=== PATIENT | female | born 1950 | race Caucasian/White ===

== ENCOUNTER 2023-03-20 15:14 | Inpatient (IN) ==
[2023-03-20] MEDS ORDERED: fentaNYL citrate PF 100 MCG/2 ML VIAL IV STA (17:29)
[2023-03-20] MEDS ORDERED: ONDANSETRON INJ 2 MG/ML 2 ML VIAL IV STA (17:29)
[2023-03-20 18:18] LABS: Basophils # (auto) 0.02 K/uL (0.00-0.20); Basophils % (auto) 0.2 %; Eosinophils # (auto) 0.09 K/uL (0.00-0.50); Hematocrit (blood only) 41.2 % (37.0-47.0); Immature Granulocytes # (auto) 0.04 K/uL (0.01-0.20); Immature Granulocytes % (auto) 0.4 %; Lymphocytes # (auto) 1.09 K/uL (1.20-3.40); Lymphocytes % (auto) 11.5 %; Mean Corpuscular Hemoglobin 32.8 pg (25.0-34.0); Mean Corpuscular Volume 96.5 fL (80.0-100.0); Mean Platelet Volume 11.4 fL (9.4-12.4); Monocytes # (auto) 0.72 K/uL (0.11-0.59); Monocytes % (auto) 7.6 %; Neutrophils # (auto) 7.48 K/uL (1.40-6.50); Neutrophils % (auto) 79.3 %; Platelet Count 210 K/uL (130-400); RDW Coefficient of Variation 12.2 % (11.5-14.5); RDW Standard Deviation 43.4 fL (36.4-46.3); Red Blood Count 4.27 M/uL (4.20-5.40); White Blood Count 9.44 K/ul (4.8-10.8)
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
[2023-03-20 18:32] LABS: Albumin Globulin Ratio 1.8 (0.9-2); Albumin Level 4.6 gm/dl (3.4-5.0); Bilirubin,Total 0.5 mg/dl (0.2-1.0); Creatinine Clr Calc Pharmacy 77.6 ml/min; Est GFR (African American) 97.9 ml/min; Est GFR (Non-African American) 84.5 ml/min; Globulin 2.6 gm/dl (2.5-4.0); Potassium 3.8 mmol/L (3.5-5.1); Total Protein 7.2 gm/dl (6.0-8.3)
[2023-03-20] MEDS ORDERED: OPTIRAY 320 100ml IV ONE (18:57)
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
--- NOTE | 2023-03-20 20:04 | CT Scan Report ---
Exam(s): CT HEAD Without Contrast EXAM: CT Head Without Intravenous Contrast CLINICAL HISTORY: Reason for exam: Trauma. TECHNIQUE: Axial computed tomography images of the head/brain without intravenous contrast. CTDI is 21.98 mGy and DLP is 475.66 mGy-cm. Automated exposure control was utilized for the study. A dose lowering technique was utilized adhering to the principles of ALARA. COMPARISON: No relevant prior studies available. FINDINGS: Brain: Minimal white matter disease, likely related to microangiopathy. No hemorrhage. Ventricles: Unremarkable. No ventriculomegaly. Bones/joints: Unremarkable. No acute fracture. Soft tissues: Unremarkable. Sinuses: Unremarkable as visualized. No acute sinusitis. Mastoid air cells: Unremarkable as visualized. No mastoid effusion. IMPRESSION: No acute findings in the head/brain. Electronically signed by: Benedict Rivera M.D. 03/20/23 20:03 PM
--- NOTE | 2023-03-20 20:07 | CT Scan Report ---
Exam(s): CT C SPINE EXAM: CT Cervical Spine Without Intravenous Contrast CLINICAL HISTORY: Reason for exam: Trauma. TECHNIQUE: Axial computed tomography images of the cervical spine without intravenous contrast. CTDI is 26.55 mGy and DLP is 1441.31 mGy-cm. Automated exposure control was utilized for the study. A dose lowering technique was utilized adhering to the principles of ALARA. COMPARISON: No relevant prior studies available. FINDINGS: Vertebrae: Unremarkable. No acute fracture. Discs/spinal canal/neural foramina: Moderate degenerative disc disease at the C6-7 level. No significant bony spinal canal stenosis at any cervical level. Soft tissues: Unremarkable. IMPRESSION: No acute findings in the cervical spine. Electronically signed by: Benedict Rivera M.D. 03/20/23 20:06 PM
[2023-03-20] MEDS ORDERED: HYDROmorphone INJ 0.5 MG/0.5 ML SYR IV STA ×3 (20:20→23:26)
--- NOTE | 2023-03-20 20:22 | CT Scan Report ---
Exam(s): CT CHEST With Contrast IV Amt: 89 ml optiray 320 EXAM: CT Chest With Intravenous Contrast CLINICAL HISTORY: Reason for exam: Trauma. TECHNIQUE: Axial computed tomography images of the chest with intravenous contrast. CTDI is 38.37 mGy and DLP is 624.41 mGy-cm. Automated exposure control was utilized for the study. A dose lowering technique was utilized adhering to the principles of ALARA. CONTRAST: Patient received 89 ml optiray 320 of IV contrast COMPARISON: No relevant prior studies available. FINDINGS: Lungs: 0.4 cm pulmonary nodule in the right middle lobe best seen on series 9 image 34. 0.5 cm subpleural groundglass nodule in the right lower lobe best seen on series 9 image 40. Lungs demonstrate bilateral dependent atelectasis. Pleural space: Unremarkable. No pneumothorax. No significant effusion. Heart: Unremarkable. No cardiomegaly. No significant pericardial effusion. No significant coronary artery calcifications. Bones/joints: Unremarkable. No acute fracture. No dislocation. Soft tissues: Unremarkable. Vasculature: Unremarkable. No thoracic aortic aneurysm. Lymph nodes: Unremarkable. No enlarged lymph nodes. IMPRESSION: 1. No evidence of traumatic thoracic injury. 2. 2 pulmonary nodules measuring up to 0.5 cm. Fleischner Society Guidelines suggest no follow-up is necessary for patients with a low or high risk of malignancy. Electronically signed by: Benedict Rivera M.D. 03/20/23 20:21 PM
--- NOTE | 2023-03-20 20:27 | CT Scan Report ---
Exam(s): CT ABDOMEN + PELVIS With Contrast IV Amt: 89 ml optiray 320 EXAM: CT Abdomen and Pelvis With Intravenous Contrast CLINICAL HISTORY: Reason for exam: Trauma. TECHNIQUE: Axial computed tomography images of the abdomen and pelvis with intravenous contrast. CTDI is 22.33 mGy and DLP is 745.71 mGy-cm. Automated exposure control was utilized for the study. A dose lowering technique was utilized adhering to the principles of ALARA. CONTRAST: Patient received 89 ml optiray 320 of IV contrast COMPARISON: No relevant prior studies available. FINDINGS: Lung bases: Unremarkable. No mass. No consolidation. ABDOMEN: Liver: Unremarkable. No mass. Gallbladder and bile ducts: Gallbladder has been removed. No ductal dilation. Pancreas: Unremarkable. No mass. No ductal dilation. Spleen: Unremarkable. No splenomegaly. Adrenals: Unremarkable. No mass. Kidneys and ureters: Unremarkable. No solid mass. No hydronephrosis. Stomach and bowel: Unremarkable. No obstruction. No mucosal thickening. PELVIS: Appendix: No findings to suggest acute appendicitis. Bladder: Unremarkable. No mass. Reproductive: Unremarkable as visualized. ABDOMEN and PELVIS: Intraperitoneal space: Unremarkable. No free air. No significant fluid collection. Bones/joints: No acute fracture. No dislocation. Soft tissues: Unremarkable. Vasculature: Unremarkable. No abdominal aortic aneurysm. Lymph nodes: Unremarkable. No enlarged lymph nodes. IMPRESSION: No acute findings in the abdomen or pelvis. Electronically signed by: Benedict Rivera M.D. 03/20/23 20:26 PM
[2023-03-20] MEDS ORDERED: LORazepam 0.5 MG TAB PO STA (23:26)
[2023-03-20] MEDS ORDERED: LORazepam 0.5 MG TAB ONE (23:31)
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
[2023-03-21] MEDS ORDERED: NITROGLYCERIN SL 0.4 MG/TAB TAB SL PRN (03:08)
[2023-03-21] MEDS ORDERED: ONDANSETRON INJ 2 MG/ML 2 ML VIAL IV PRN (03:08)
[2023-03-21] MEDS ORDERED: HYDROmorphone INJ 0.5 MG/0.5 ML SYR IV PRN (03:08)
[2023-03-21] MEDS ORDERED: Patient's ALLERGY Info needs ENTERED STA (03:14)
[2023-03-21] MEDS: SODIUM CHLORIDE 0.9% 1,000 ML IV SCH ×2 (04:31→15:55)
[2023-03-21 04:45] LABS: Basophils # (auto) 0.03 K/uL (0.00-0.20); Basophils % (auto) 0.4 %; Eosinophils # (auto) 0.16 K/uL (0.00-0.50); Eosinophils % (auto) 2.4 %; Hematocrit (blood only) 37.3 % (37.0-47.0); Hemoglobin 12.6 g/dl (12.0-16.0); Immature Granulocytes # (auto) 0.03 K/uL (0.01-0.20); Immature Granulocytes % (auto) 0.4 %; Lymphocytes # (auto) 1.37 K/uL (1.20-3.40); Lymphocytes % (auto) 20.5 %; Mean Corpuscular Hemoglobin 32.9 pg (25.0-34.0); Mean Corpuscular Hgb Conc 33.8 g/dL (32.0-36.0); Mean Corpuscular Volume 97.4 fL (80.0-100.0); Mean Platelet Volume 10.5 fL (9.4-12.4); Monocytes % (auto) 10.5 %; Neutrophils # (auto) 4.38 K/uL (1.40-6.50); Neutrophils % (auto) 65.8 %; Platelet Count 222 K/uL (130-400); RDW Coefficient of Variation 12.2 % (11.5-14.5); RDW Standard Deviation 43.8 fL (36.4-46.3); Red Blood Count 3.83 M/uL (4.20-5.40); White Blood Count 6.67 K/ul (4.8-10.8)
[2023-03-21 05:03] LABS: BUN Creatinine Ratio 22.5 (10-20); Calcium 8.4 mg/dl (8.6-10.3); Creatinine Clr Calc Pharmacy 77.6 ml/min; Est GFR (African American) 97.9 ml/min; Est GFR (Non-African American) 84.5 ml/min; Potassium 3.8 mmol/L (3.5-5.1)
[2023-03-21 05:11] LABS: Troponin I High Sensitivity 86.6 pg/ml (0-14)
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
[2023-03-21] MEDS: LEVOTHYROXINE SODIUM 112 MCG TABLET PO SCH (07:56)
[2023-03-21] MEDS: HEPARIN SOD 5,000 UNIT/0.5 ML VIAL SQ SCH ×3 (07:56→21:05)
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
[2023-03-21 09:17] LABS: Thyroid Stimulating Hormone 1.592 uIu/ml (0.300-4.500)
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
--- NOTE | 2023-03-21 12:03 | CT Scan Report ---
CT tib/fib LT wo con HISTORY: 72 years-old Female increasing pain, unable to weightbear chronic pain of the left lower le g COMPARISON: Radiographs 03/20/2023 TECHNIQUE: Multiple axial CT images of the left tibia and fibula were obtained without the use of IV contrast. A dose lowering technique was used consistent with the principals of JACKIE. FINDINGS: No acute fracture or dislocation identified. Osteoarthritis of the knee and ankle, severe within the patellofemoral joint. Degenerative spurring of the calcaneus. Small joint effusion. There are a few subcentimeter corticated loose bodies in the posterior intercon dylar notch. Small pretibial subcutaneous contusions with lower extremity varicosities. No intramuscu lar collections identified. Tendons and ligaments are not well evaluated by CT technique. Probable li anaya within the medial foot measures 2.3 cm on image 395. IMPRESSION: 1. No acute fracture or dislocation. 2. Small pretibial subcutaneous contusions with lower leg varicosities. 3. Osteoarthritis of the knee and ankle with small knee joint effusion. ACT 112: Negative or not required by law. The above report was generated using voice recognition software. It may contain grammatical, syntax o r spelling errors. Electronically signed by: Omid Laboy M.D. 03/21/2023 12:02 PM
--- NOTE | 2023-03-21 12:26 | Electrocardiogram Report ---
Test Reason : Blood Pressure : / mmHG Vent. Rate : 067 BPM Atrial Rate : 067 BPM P-R Int : 162 ms QRS Dur : 082 ms QT Int : 414 ms P-R-T Axes : 036 -08 015 degrees QTc Int : 437 ms Normal sinus rhythm Minimal voltage criteria for LVH, may be normal variant ( R in aVL ) Nonspecific ST and T wave abnormality Abnormal ECG No previous ECGs available Confirmed by Jovany Griffin ([id number]) on 03/21/2023 12:26:13 PM Referred By: REFERRED SELF Confirmed By:Jovany Griffin
--- NOTE | 2023-03-21 13:58 | Electrocardiogram Report ---
Test Reason : Blood Pressure : / mmHG Vent. Rate : 054 BPM Atrial Rate : 054 BPM P-R Int : 160 ms QRS Dur : 074 ms QT Int : 504 ms P-R-T Axes : 038 -09 -52 degrees QTc Int : 477 ms Sinus bradycardia Left ventricular hypertrophy with repolarization abnormality ( R in aVL ) Nonspecific T wave abnormality Abnormal ECG When compared with ECG of 20-MAR-2023 17:38, Inverted T waves have replaced nonspecific T wave abnormality in Inferior leads Confirmed by Jovany Griffin ([id number]) on 03/21/2023 1:57:56 PM Referred By: REFERRED SELF Confirmed By:Jovany Griffin
[2023-03-21] MEDS ORDERED: INFLUENZA VACCINE HIGH-DOSE (HD-IIV4) PF 65+ 0.7mL SYR IM ONE (14:28)
[2023-03-21] MEDS: oxyCODONE HCL IR 5 MG TAB (IMMEDIATE RELEASE) PO PRN (17:08)
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
[2023-03-21] MEDS ORDERED: MELATONIN 3 MG TAB PO PRN (20:22)
[2023-03-21] MEDS ORDERED: ROSUVASTATIN CALCIUM 5 MG TAB PO SCH (21:00)
[2023-03-21] MEDS ORDERED: LORazepam 0.5 MG TAB PO STA (21:10)
[2023-03-22] MEDS: SODIUM CHLORIDE 0.9% 1,000 ML IV SCH ×2 (00:59→11:56)
[2023-03-22] MEDS: LEVOTHYROXINE SODIUM 112 MCG TABLET PO SCH (05:37)
[2023-03-22] MEDS: HEPARIN SOD 5,000 UNIT/0.5 ML VIAL SQ SCH (05:37)
[2023-03-22 06:49] LABS: Basophils # (auto) 0.04 K/uL (0.00-0.20); Basophils % (auto) 0.9 %; Eosinophils # (auto) 0.22 K/uL (0.00-0.50); Eosinophils % (auto) 5.1 %; Hemoglobin 11.3 g/dl (12.0-16.0); Immature Granulocytes # (auto) 0.01 K/uL (0.01-0.20); Immature Granulocytes % (auto) 0.2 %; Lymphocytes # (auto) 1.39 K/uL (1.20-3.40); Lymphocytes % (auto) 32.2 %; Mean Corpuscular Hemoglobin 32.3 pg (25.0-34.0); Mean Corpuscular Hgb Conc 33.2 g/dL (32.0-36.0); Mean Corpuscular Volume 97.1 fL (80.0-100.0); Mean Platelet Volume 10.5 fL (9.4-12.4); Monocytes # (auto) 0.43 K/uL (0.11-0.59); Neutrophils # (auto) 2.23 K/uL (1.40-6.50); Neutrophils % (auto) 51.6 %; Platelet Count 167 K/uL (130-400); RDW Standard Deviation 42.5 fL (36.4-46.3); White Blood Count 4.32 K/ul (4.8-10.8)
[2023-03-22 07:20] LABS: Albumin Globulin Ratio 1.8 (0.9-2); Albumin Level 3.5 gm/dl (3.4-5.0); BUN Creatinine Ratio 20.6 (10-20); Bilirubin,Total 0.7 mg/dl (0.2-1.0); Creatinine Clr Calc Pharmacy 88.9 ml/min; Est GFR (African American) 103.1 ml/min; Globulin 1.9 gm/dl (2.5-4.0); Magnesium 1.8 mg/dl (1.7-2.4); Phosphorus 3.1 mg/dl (2.5-4.9); Potassium 3.7 mmol/L (3.5-5.1); Total Protein 5.4 gm/dl (6.0-8.3)
[2023-03-22] MEDS: oxyCODONE HCL IR 5 MG TAB (IMMEDIATE RELEASE) PO PRN (11:00)
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
--- NOTE | 2023-03-22 14:47 | Electrocardiogram Report ---
Test Reason : Blood Pressure : / mmHG Vent. Rate : 057 BPM Atrial Rate : 057 BPM P-R Int : 158 ms QRS Dur : 082 ms QT Int : 474 ms P-R-T Axes : 055 003 -36 degrees QTc Int : 461 ms Sinus bradycardia Nonspecific T wave abnormality Abnormal ECG When compared with ECG of 21-MAR-2023 12:10, No significant change was found Confirmed by Jovany Griffin ([id number]) on 03/22/2023 2:47:03 PM Referred By: REFERRED SELF Confirmed By:Jovany Griffin
== END 2023-03-22 12:18 | disposition home or self-care (01) | DRG 605 ==
LOC: ED 15:14 → SUATTDRO 23:32 → EDINP 23:32 → 2S 03-21 03:09